=== PATIENT | female | born 1975 | race Caucasian/White ===

== ENCOUNTER → 2016-10-20 | Outpatient (CLI) | payer BC ==
--- NOTE | 2016-10-20 10:09 | EKG ---
[address] [address] Measurements Intervals [place] Rate: 78 P: 5 IA: 135 QRS: 65 QRSD: 92 T: 43 QT: 374 QTc: 408 Interpretive Statements SINUS RHYTHM NONSPECIFIC T-WAVE ABNORMALITY No previous ECG available for comparison Electronically Signed On 10-20-16 13:37:05 MST by Marcial Baum MD [email or web address]
== END ==
LOC: EKG 09:56
PROVIDERS: ATTEND Family Medicine
DX: R07.89 Other chest pain (principal)
CPT/HCPCS: 93005; 93010

== ENCOUNTER → 2016-11-06 | Outpatient (CLI) | payer BC ==
--- NOTE | 2016-11-06 13:15 | DI ---
XR L-SPINE 2-3 VW,11/06/2016 9:27 AM: Clinical History: Acute right sided low back pain with right-sided sciatica. Previous Exam: None at this facility. Findings: 3 views of the lumbar spine are obtained, and demonstrate anatomic alignment without fractures. There is loss of intervertebral disc height at L5/S1. There is facet hypertrophy noted throughout the lower lumbar spine. No pathologic calcifications are seen. Patient is status post cholecystectomy. A nonobstructive bowel gas pattern is seen. Impression: Mild degenerative changes of the lumbar spine.
== END ==
LOC: MOB RAD 09:32
PROVIDERS: ATTEND Family Medicine
DX: M54.41 Lumbago with sciatica, right side (principal); M47.816 Spondylosis without myelopathy or radiculopathy, lumbar region
CPT/HCPCS: 72100

== ENCOUNTER → 2016-11-17 | Outpatient (CLI) | payer BC ==
--- NOTE | 2016-11-17 15:59 | DI ---
MRI LUMBAR SPINE W/O CN,11/17/2016 10:10 AM: Clinical History: Right-sided sciatica. Previous Exam: None at this facility. Findings: Multiplanar MR images are obtained through the lumbar spine without contrast. Bony alignment is anato pepito. No fractures are seen. Marrow signal is preserved. Vertebral body height is preserved. Paraspinal musculature is unremarkable. The distal conus is normal and lies at the L1 level. The aorta is unremarkable. Individual intervertebral disc spaces: L1/2: Significant stenosis. L2/3: No significant stenosis. L3/4: There is disc desiccation and a broad-based disc bulge with some annular fissuring and some fac et and ligamentum flavum hypertrophy contributing to mild to moderate central canal stenosis and mild bilateral lateral recess stenosis. L4/5: There is a small broad-based disc bulge without significant stenosis. There is some facet and l igamentum flavum hypertrophy as well at this level. L5/S1: There is disc desiccation, loss of intervertebral disc height with some facet and ligamentum f lavum hypertrophy contributing to mild bilateral neural foraminal narrowing. Impression: L3/4: There is disc desiccation and a broad-based disc bulge with some annular fissuring and some fac et and ligamentum flavum hypertrophy contributing to mild to moderate central canal stenosis and mild bilateral lateral recess stenosis. L4/5: There is a small broad-based disc bulge without significant stenosis. There is some facet and l igamentum flavum hypertrophy as well at this level. L5/S1: There is disc desiccation, loss of intervertebral disc height with some facet and ligamentum f lavum hypertrophy contributing to mild bilateral neural foraminal narrowing.
== END ==
LOC: MRI 10:05
PROVIDERS: ATTEND Family Medicine
DX: M54.31 Sciatica, right side (principal); M51.16 Intervertebral disc disorders with radiculopathy, lumbar region; M47.816 Spondylosis without myelopathy or radiculopathy, lumbar region; M51.17 Intervertebral disc disorders with radiculopathy, lumbosacral region
CPT/HCPCS: 72148

== ENCOUNTER → 2017-04-23 | Outpatient (CLI) | payer BC ==
[2017-04-23 14:29] LABS: BILIRUBIN,URINE NEGATIVE (NEG); CLARITY,URINE Slightly Cloudy (CLEAR); COLOR,URINE YELLOW; GLUCOSE, URINE (UA) NEGATIVE (NEG); NITRATE,URINE POSITIVE (NEG); OCCULT BLOOD,URINE NEGATIVE (NEG); PROTEIN,URINE NEGATIVE (NEG); UROBILINOGEN,URINE 0.2 EU/dL (0.2)
[2017-04-23 14:35] LABS: URINE SAMPLE TYPE CLEAN CATCH URINE
[2017-04-23 14:36] LABS: BACTERIA,URINE MANY; RBC,URINE RARE /hpf; SQUAMOUS EPITHELIAL CELL,UR FEW
[2017-04-23 15:00] LABS: BASOPHILS # (AUTO) 0.05 10*3/UL; BASOPHILS % (AUTO) 0.6 % (0-1); EOSINOPHILS # (AUTO) 0.23 10*3/UL; EOSINOPHILS % (AUTO) 2.9 % (0-8); HEMATOCRIT 40.4 % (37.0-47.0); HEMOGLOBIN 13.6 g/dL (12.0-16.0); MEAN CORPUSCULAR HEMOGLOBIN 26.7 PG (27-31); MEAN CORPUSCULAR HGB CONC 33.7 g/dL (33-37); MEAN CORPUSCULAR VOLUME 79.4 FL (81-99); MEAN PLATELET VOLUME 11.1 FL (7.4-12.2); MONOCYTES # (AUTO) 0.6 10*3/UL (0.3-0.8); MONOCYTES % (AUTO) 7.7 % (5-15); NEUTROPHILS # (AUTO) 5.11 10*3/UL; NEUTROPHILS % (AUTO) 65.6 % (50-80); RED BLOOD COUNT 5.09 10^6/uL (4.20-5.40)
[2017-04-23 15:01] LABS: PLATELET MORPHOLOGY COMMENT NORMAL MORPHOLOGY (NORM); RBC MORPHOLOGY COMMENT NORMAL MORPHOLOGY (NORM); WBC MORPHOLOGY COMMENT NORMAL MORPHOLOGY (NORM)
[2017-04-23 15:11] LABS: HEMOGLOBIN A1C 5.02 % (4.2-6.0)
[2017-04-23 15:17] LABS: BLOOD UREA NITROGEN 8 mg/dL (7-22); CALCIUM 9.9 mg/dL (8.7-10.7); EST GLOMERULAR FILTRATION > 60 (>60 ml/min/1.73m(2)); SERUM ALBUMIN 4.5 g/dL (3.5-4.8)
== END ==
LOC: MOB LAB 13:38
PROVIDERS: ATTEND Family Medicine
DX: N17.9 Acute kidney failure, unspecified (principal); R11.2 Nausea with vomiting, unspecified; R73.09 Other abnormal glucose; R30.0 Dysuria; R79.89 Other specified abnormal findings of blood chemistry
CPT/HCPCS: 36415; 80053; 81001; 83036; 85025; 87077; 87088; 87186